=== PATIENT | female | born 1950 | race Caucasian/White ===

== ENCOUNTER 2018-04-05 13:27 | Outpatient (CLI) | END 2018-04-05 13:28 | disposition home or self-care (01) | LOC: FCC-LAB 13:27 | PROVIDERS: ATTEND Family Medicine | DX: R53.82 Chronic fatigue, unspecified (principal); I10 Essential (primary) hypertension; F32.1 Major depressive disorder, single episode, moderate | CPT/HCPCS: 36415; 80053; 84439; 84443; 85025 ==